=== PATIENT | female | born 2000 | race Two or more races ===

== ENCOUNTER 2018-07-23 17:01 | Emergency (ER) | payer MEDICAID ==
[~2018-07-23] VITALS: Ht 162.6 cm; Wt 91.2 kg
[2018-07-23 17:34] VITALS: BP 143/62; Ht 162.6 cm; Wt 91.2 kg
== END 2018-07-23 18:32 | disposition home or self-care (01) ==
LOC: ED 17:01
DX: S29.011A Strain of muscle and tendon of front wall of thorax, initial encounter (principal); N39.0 Urinary tract infection, site not specified; K59.00 Constipation, unspecified; X58.XXXA Exposure to other specified factors, initial encounter; Y93.89 Activity, other specified; Y92.89 Other specified places as the place of occurrence of the external cause; Y99.8 Other external cause status

== ENCOUNTER 2020-03-22 03:20 | Emergency (ER) | payer SELFPAY ==
[~2020-03-22] VITALS: Ht 162.6 cm; Wt 77.1 kg
[2020-03-22 03:25] VITALS: Ht 162.6 cm; Wt 77.1 kg
[2020-03-22 04:38] VITALS: BP 127/68
== END 2020-03-22 04:38 | disposition home or self-care (01) ==
LOC: ED 03:20
DX: F41.9 Anxiety disorder, unspecified (principal)